=== PATIENT | male | born 1980 | race Caucasian/White ===

== ENCOUNTER → 2022-01-07 13:33 | Outpatient (CLI) | payer OTHER, SELFPAY ==
--- NOTE | ~2022-01-07 | US_ITS ---
EXAMINATION: US scrotum doppler DATE: 01/07/2022 13:59 INDICATION: Right testicular pain TECHNIQUE: Testicular sonogram utilizing grayscale and Doppler COMPARISON: None. FINDINGS: The right testis measures 4.4 x 2.1 x 2.9 cm. The left testis measures 4.1 x 1.8 x 3.4 cm. There is normal vascular flow to both testes. The right epididymis is normal with normal vascular korey w. The left epididymis is normal with normal vascular flow. Bilateral varicoceles are noted IMPRESSION: 1. Bilateral varicoceles. Reviewed, dictated and finalized at location B. IMPRESSION: 1. Bilateral varicoceles.
== END ==
PROVIDERS: PCP Student in an Organized Health Care Education/Training Program; Visit Provider Student in an Organized Health Care Education/Training Program
DX: N50.82 Scrotal pain (principal); I86.1 Scrotal varices
CPT/HCPCS: 76870; 93976